=== PATIENT | female | born 1935 | race Caucasian/White ===

== ENCOUNTER 2019-10-27 17:19 | Observation (INO) ==
[2019-10-27 19:18] LABS: Basophils % 0.3 % (0.0-0.8); Eosinophils # 0.2 10*3/uL (0.0-0.87); Hematocrit 32.2 VOL% (35.7-47.0); Hemoglobin 10.6 GM/DL (12.0-16.0); Immature Granulocytes % 0.2 %; Immature Granulocytes Absolute 0.02 #; Mean Corpuscular HGB Conc 32.9 GM/DL (32-36); Mean Corpuscular Volume 96.1 FL (87-102); Mean Platelet Volume 9.2 FL (9.6-12.0); Monocytes % 9.6 % (1.7-12.7); Neutrophils % 53.9 % (38.7-73.9); Platelet Count 212 T/CUMM (130-400); Red Blood Count 3.35 MC/CUMM (3.8-5.5); Red Cell Distribution Width 15.4 % (9.3-17.3); White Blood Count 8.9 T/CUMM (4-12)
[2019-10-27] MEDS ORDERED: OXYMETAZOLINE 0.05% NASAL SPRAY 15 ML BOTTLE ONE (19:23)
[2019-10-27 19:39] LABS: PT Patient Result 10.9 SECS (9.8-11.9)
[2019-10-27] MEDS ORDERED: SODIUM CHLORIDE 0.9% 1,000 ML IV PRN (21:04)
[2019-10-27] MEDS ORDERED: GLUCAGON 1 MG VIAL IM PRN (21:42)
[2019-10-27] MEDS ORDERED: diphenhydrAMINE CAP 25 MG CAPSULE PO PRN (21:42)
[2019-10-27] MEDS ORDERED: hydrALAZINE 20 MG/1 ML VIAL IV PRN (21:42)
[2019-10-27] MEDS ORDERED: DEXTROSE 50% 25 GM/50 ML VIAL IV PRN (21:42)
[2019-10-27] MEDS ORDERED: NICOTINE 21 MG/24 HR PATCH TRANSDERM PRN (21:42)
[2019-10-27] MEDS ORDERED: guaiFENesin/DM ER 600-30 MG TABLET PO PRN (21:42)
[2019-10-27] MEDS ORDERED: MORPHINE 4 MG/1 ML VIAL IV PRN (21:42)
[2019-10-27] MEDS ORDERED: DOCUSATE SODIUM 100 MG CAPSULE PO PRN (21:42)
[2019-10-27 21:56] LABS: Osmolality,Calculated 285.5 MOS/KG (273-304)
[2019-10-28] MEDS ORDERED: SODIUM CHLORIDE 0.9% 1,000 ML IV PRN (00:02)
[2019-10-28] MEDS: ACETAMINOPHEN 325 MG TABLET PO PRN ×3 (00:35→21:37)
[2019-10-28] MEDS: ZALEPLON 5 MG CAPSULE PO PRN ×3 (00:35→23:01)
[2019-10-28] MEDS ORDERED: MAGNESIUM SULF RIDER 2 GM in PREMIX 1 EACH IV PRN (01:24)
[2019-10-28] MEDS ORDERED: OXYMETAZOLINE 0.05% NASAL SPRAY 15 ML BOTTLE ONE (05:26)
[2019-10-28] MEDS ORDERED: ONDANSETRON 4 MG/2 ML VIAL ONE (05:27)
[2019-10-28] MEDS ORDERED: OXYMETAZOLINE 0.05% NASAL SPRAY 15 ML BOTTLE BOTH NARES PRN (05:30)
[2019-10-28] MEDS ORDERED: LORazepam 2 MG/1 ML VIAL IV ONE (05:32)
[2019-10-28] MEDS ORDERED: ONDANSETRON 4 MG/2 ML VIAL IV ONE (05:57)
[2019-10-28 06:05] LABS: Basophils % 0.4 % (0.0-0.8); Eosinophils % 1.1 % (0.00-10.9); Immature Granulocytes Absolute 0.04 #
[2019-10-28 06:12] LABS: Basophils # 0.1 10*3/uL (0.0-0.2); Eosinophils # 0.1 10*3/uL (0.0-0.87); Hematocrit 32.3 VOL% (35.7-47.0); Hemoglobin 10.5 GM/DL (12.0-16.0); Immature Granulocytes % 0.3 %; Lymphocytes # 4.5 10*3/uL (1.4-4.0); Lymphocytes % 39.1 % (21.3-54.2); Mean Corpuscular HGB Conc 32.5 GM/DL (32-36); Mean Corpuscular Volume 96.4 FL (87-102); Mean Platelet Volume 9.6 FL (9.6-12.0); Neutrophils % 51.1 % (38.7-73.9); Platelet Count 271 T/CUMM (130-400); Red Blood Count 3.35 MC/CUMM (3.8-5.5); Red Cell Distribution Width 15.2 % (9.3-17.3); White Blood Count 11.5 T/CUMM (4-12)
[2019-10-28 06:22] LABS: Calcium 9.5 MG/DL (8.5-10.1); Osmolality,Calculated 284.5 MOS/KG (273-304)
[2019-10-28 07:53] LABS: Lymphocytes 32 % (20-55); Platelet Estimate Normal; Segmented Neutrophils 62 % (50-85); Total Cells Counted 100
[2019-10-28 07:54] LABS: Anisocytosis 1+; Macrocytosis 1+
[2019-10-28] MEDS ORDERED: amLODIPine 2.5 MG TABLET PO ONE (08:46)
[2019-10-28] MEDS: PANTOPRAZOLE 40 MG TABLET PO SCH (09:40)
[2019-10-28] MEDS: METOPROLOL TARTRATE 50 MG TABLET PO SCH ×2 (09:40→21:42)
[2019-10-28] MEDS: ONDANSETRON 4 MG/2 ML VIAL IV PRN ×2 (13:35→22:55)
[2019-10-28 17:26] LABS: Apearance,Urine CLEAR (Clear); Bilirubin,Urine Negative (Negative); Blood, Urine Negative (Negative); Glucose,Urine (UA) Negative (Negative); Ketones,Urine Negative (Negative); Mucus,Urine Occasional /LPF (Occasional); Nitrite,Urine Negative (Negative); Protein,Urine Negative; RBC,Urine 3 /HPF (0-4); Squamous Epithelial Cell,Urine Occasional /HPF (0-10); Urine Color Yellow (Yellow); Urine Specific Gravity 1.014 (1.001-1.035); Urine Urobilinogen < 2.0 EU/DL (0.2-1.0); WBC,Urine 26 /HPF (0-6)
[2019-10-28] MEDS ORDERED: SIMVASTATIN 20 MG TABLET PO SCH (21:00)
[2019-10-29] MEDS: ACETAMINOPHEN 325 MG TABLET PO PRN (06:01)
[2019-10-29] MEDS: METOPROLOL TARTRATE 50 MG TABLET PO SCH (08:39)
[2019-10-29] MEDS: PANTOPRAZOLE 40 MG TABLET PO SCH (08:39)
[2019-10-29 13:30] VITALS: BP 132/82
== END 2019-10-29 13:00 | disposition home or self-care (01) ==
LOC: N.ED 17:19 → N.EDINP 17:19 → SUATTDRO 21:42 → N.EDINP 22:20 → N.TELES 22:30
PROVIDERS: ADMIT Internal Medicine; ATTEND Internal Medicine